=== PATIENT | female | born 1995 | race American Indian/Alaskan Native ===

== ENCOUNTER 2018-08-12 15:12 | Emergency (ER) | payer SELFPAY ==
--- NOTE | 2018-08-12 15:57 | Emergency Department Report ---
Chief Complaint: Sore Throat Stated Complaint: SORE THROAT Time Seen by Provider: 08/12/18 15:54 - HPI History of Present Illness: This is a 23 y.o. F. that presents to the ER with sore throat for 4 days. 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 Reports cough and swollen lymph nodes. Tried salt water gargles and dayquil with no improvement of symptoms. - Exam Vital Signs: Vital Signs 08/12/18 15:53 Temperature 98.1 F Pulse Rate 82 Respiratory 16 Rate Blood Pressure 128/80 O2 Sat by Pulse 100 Oximetry MSE screening note: Focused history and physical exam performed. Due to findings the following was ordered: This initial assessment/diagnostic orders/clinical plan/treatment(s) is/are subject to change based on patient's health status, clinical progression and re- assessment by fellow clinical providers in the ED. Further treatment and workup at subsequent clinical providers discretion. Patient/guardians urged not to william pe from the ED as their condition may be serious if not clinically assessed and managed. Initial orders include: Rapid strep ED Disposition for MSE Condition: Stable
[2018-08-12] MEDS ORDERED: IBUPROFEN PO ONE (21:03)
[2018-08-12] MEDS ORDERED: DELTASONE PO ONE (21:03)
--- NOTE | 2018-08-12 21:45 | Emergency Department Report ---
ED ENT HPI - General Chief complaint: Sore Throat Stated complaint: SORE THROAT Time Seen by Provider: 08/12/18 15:54 Source: patient Mode of arrival: Ambulatory Limitations: No Limitations - History of Present Illness Initial comments: This is a 23 y.o. F. that presents to the ER with sore throat for 4 days. 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 Reports cough and swollen lymph nodes. Tried salt water gargles and dayquil with no improvement of symptoms. symptoms are exacerbated by swallowing symptoms are relieved by nothing, tmax 102 at home, complaint: sore throat Onset/Timin -: days(s) Location: throat Severity: moderate Severity scale (0 -10): 7 Quality: burning, sharp Consistency: constant Improves with: rest Worsens with: swallowing Associated Symptoms: pain with swallowing, sore throat - Related Data Previous Rx's Medication Instructions Recorded Last Taken Type Amoxicillin [Trimox CAP] 500 mg PO Q8H 10 Days #30 capsule 08/12/18 Unknown Rx Benzocaine/Mentho [Cepacol X 1 each MM Q3H PRN #3 packet 08/12/18 Unknown Rx Strength] Ibuprofen [Motrin 800 MG tab] 800 mg PO Q8HR PRN #30 tablet 08/12/18 Unknown Rx predniSONE [Deltasone] 40 mg PO QDAY 5 Days #10 tab 08/12/18 Unknown Rx Allergies Allergy/AdvReac Type Severity Reaction Status Date / Time No Known Allergies Allergy Unverified 08/12/18 15:18 ED Dental HPI - General Chief complaint: Sore Throat Stated complaint: SORE THROAT Time Seen by Provider: 08/12/18 15:54 Source: patient Mode of arrival: Ambulatory Limitations: No Limitations - History of Present Illness MD complaint: sore throat - Related Data Previous Rx's Medication Instructions Recorded Last Taken Type Amoxicillin [Trimox CAP] 500 mg PO Q8H 10 Days #30 capsule 08/12/18 Unknown Rx Benzocaine/Mentho [Cepacol X 1 each MM Q3H PRN #3 packet 08/12/18 Unknown Rx Strength] Ibuprofen [Motrin 800 MG tab] 800 mg PO Q8HR PRN #30 tablet 08/12/18 Unknown Rx predniSONE [Deltasone] 40 mg PO QDAY 5 Days #10 tab 08/12/18 Unknown Rx Allergies Allergy/AdvReac Type Severity Reaction Status Date / Time No Known Allergies Allergy Unverified 08/12/18 15:18 ED Review of Systems ROS: Stated complaint: SORE THROAT Other details as noted in HPI Constitutional: fever, malaise Eyes: denies: eye pain, eye discharge, vision change ENT: throat pain Respiratory: denies: cough, shortness of breath, wheezing Cardiovascular: denies: chest pain, palpitations Endocrine: no symptoms reported Gastrointestinal: denies: abdominal pain, nausea, diarrhea Genitourinary: denies: urgency, dysuria, discharge Musculoskeletal: denies: back pain, joint swelling, arthralgia Skin: denies: rash, lesions Neurological: denies: headache, weakness, paresthesias Psychiatric: denies: anxiety, depression Hematological/Lymphatic: denies: easy bleeding, easy bruising ED Past Medical Hx - Past Medical History Previous Medical History?: No - Surgical History Past Surgical History?: No - Social History Smoking Status: Never Smoker Substance Use Type: None - Medications Home Medications: Home Medications Medication Instructions Recorded Confirmed Last Taken Type Amoxicillin [Trimox CAP] 500 mg PO Q8H 10 Days #30 capsule 08/12/18 Unknown Rx Benzocaine/Mentho [Cepacol X 1 each MM Q3H PRN #3 packet 08/12/18 Unknown Rx Strength] Ibuprofen [Motrin 800 MG tab] 800 mg PO Q8HR PRN #30 tablet 08/12/18 Unknown Rx predniSONE [Deltasone] 40 mg PO QDAY 5 Days #10 tab 08/12/18 Unknown Rx ED Physical Exam - General Limitations: No Limitations General appearance: alert, in no apparent distress - Head Head exam: Present: atraumatic, normocephalic - Eye Eye exam: Present: normal appearance, PERRL, EOMI Pupils: Present: normal accommodation - ENT ENT exam: Present: mucous membranes moist, TM's normal bilaterally, normal external ear exam - Expanded ENT Exam Expanded Throat exam: Positive: tonsillar erythema, tonsillomegaly, tonsillar exudate, other (uvula midline no stridor no peritonsilar abascess airway is patent. ). Negative: R peritonsillar mass, L peritonsillar mass - Neck Neck exam: Present: normal inspection, full ROM, lymphadenopathy. Absent: te nderness, meningismus, thyromegaly - Expanded Neck Exam Expanded Neck exam: Absent: tenderness, midline deformity, anterior neck swelling, thyro id mass, carotid bruit, tracheal deviation - Respiratory Respiratory exam: Present: normal lung sounds bilaterally, chest wall tenderness. Absent: respiratory distress, wheezes, stridor - Cardiovascular Cardiovascular Exam: Present: regular rate, normal rhythm, normal heart sounds. Absent: systolic murmur, diastolic murmur, rubs, gallop - GI/Abdominal GI/Abdominal exam: Present: soft, normal bowel sounds. Absent: distended, tenderness, bruit, hernia - Rectal Rectal exam: Present: deferred - Extremities Exam Extremities exam: Present: normal inspection, full ROM, normal capillary refill. Absent: tenderness - Back Exam Back exam: Present: normal inspection, full ROM. Absent: tenderness, rash noted - Neurological Exam Neurological exam: Present: alert, oriented X3, CN II-XII intact, normal gait, reflexes normal - Psychiatric Psychiatric exam: Present: normal affect, normal mood - Skin Skin exam: Present: warm, dry, intact, normal color. Absent: rash ED Course Vital Signs 08/12/18 08/12/18 15:53 19:55 Temperature 98.1 F 98.0 F Pulse Rate 82 73 Respiratory 16 16 Rate Blood Pressure 128/80 140/86 O2 Sat by Pulse 100 100 Oximetry ED Medical Decision Making - Medical Decision Making this is pharyngitis plan: amoxicillin, ibuprofen, cepachol, prednisone. Critical care attestation.: If time is entered above; I have spent that time in minutes in the direct care of this critically ill patient, excluding procedure time. ED Disposition Clinical Impression: Pharyngitis Qualifiers: Pharyngitis/tonsillitis etiology: unspecified etiology Qualified Code(s): J02.9 - Acute pharyngitis, unspecified Disposition: DC-01 TO HOME OR SELFCARE Is pt being admited?: No Does the pt Need Aspirin: No Condition: Stable Instructions: Pharyngitis (ED) Prescriptions: Benzocaine/Mentho [Cepacol X Strength] 1 each MM Q3H PRN #3 packet PRN Reason: Throat Pain predniSONE [Deltasone] 40 mg PO QDAY 5 Days #10 tab Ibuprofen [Motrin 800 MG tab] 800 mg PO Q8HR PRN #30 tablet PRN Reason: pain Amoxicillin [Trimox CAP] 500 mg PO Q8H 10 Days #30 capsule Referrals: [facility] [Outside] - 3-5 Days Forms: Work/School Release Form(ED) Time of Disposition: 21:52
[2018-08-12 21:50] VITALS: BP 134/98
== END 2018-08-12 22:09 | disposition home or self-care (01) ==
LOC: ED 15:12
DX: J02.9 Acute pharyngitis, unspecified (principal)
CPT/HCPCS: 87116; 87430; 99283; J7512